=== PATIENT | male | born 1945 | race Caucasian/White ===

== ENCOUNTER 2018-10-08 02:14 | Outpatient (CLI) | payer BC, SELFPAY ==
[2018-10-08 09:00] LABS: ALT 36 U/L (12-78); AST 18 U/L (15-37); Albumin 3.7 g/dL (3.4-5.0); Alkaline Phosphatase 100 U/L (46-116); Anion Gap 9.1 mmol/L (3-11); BUN 20 mg/dL (7-18); Bilirubin, Total 0.8 mg/dL (0.2-1.0); CO2 28.9 mmol/L (21.0-32.0); CREATININE 0.86 mg/dL (0.70-1.30); Chloride 102 mmol/L (98-107); Cholesterol 194 mg/dL (50-200); Glucose 113 mg/dL (70-100); HDL Cholesterol 51 mg/dL (40-60); LDL CHOLESTEROL 126 mg/dL (<100); Potassium 4.7 mmol/L (3.5-5.1); Sodium 140 mmol/L (136-145); Total Protein 7.2 g/dL (6.4-8.2); Triglyceride 143 mg/dL (30-150)
[2018-10-09 10:12] LABS: PSA, Screening 17.5 ng/ml (0-6.5)
== END 2018-10-08 02:34 ==
PROVIDERS: PCP Family Medicine; Visit Provider Family Medicine
DX: R03.0 Elevated blood-pressure reading, without diagnosis of hypertension (principal); N40.0 Benign prostatic hyperplasia without lower urinary tract symptoms; Z12.5 Encounter for screening for malignant neoplasm of prostate
CPT/HCPCS: 36415; 80053; 80061; 83721; 84153

== ENCOUNTER 2019-12-06 02:12 | Outpatient (CLI) | payer BC, SELFPAY ==
[2019-12-06 10:37] LABS: Hemoglobin A1C 6.4 % (3.8-5.6)
[2019-12-06 11:04] LABS: Glucose 114 mg/dL (74-106)
[2019-12-07 09:19] LABS: PSA, Screening 24.2 ng/mL (0.0-6.5)
== END 2019-12-06 02:32 ==
PROVIDERS: PCP Family Medicine; Visit Provider Family Medicine
DX: E11.9 Type 2 diabetes mellitus without complications (principal); R73.9 Hyperglycemia, unspecified; R97.20 Elevated prostate specific antigen [PSA]; Z12.5 Encounter for screening for malignant neoplasm of prostate
CPT/HCPCS: 36415; 82947; 84153; 83036

== ENCOUNTER 2020-11-06 04:49 | Outpatient (CLI) | payer BC, SELFPAY ==
[2020-11-06 08:20] LABS: Hemoglobin A1C 6.7 % (<5.7)
[2020-11-06 08:33] LABS: Anion Gap 7.7 mmol/L (3-11); BUN 18 mg/dL (7-18); CO2 29.3 mmol/L (21.0-32.0); CREATININE 0.9 mg/dL (0.70-1.30); Calcium 8.6 mg/dL (8.5-10.1); Chloride 104 mmol/L (98-107); Glucose 122 mg/dL (74-106); Potassium 4.3 mmol/L (3.5-5.1); Sodium 141 mmol/L (136-145)
[2020-11-06 17:21] LABS: PSA, Diagnostic 23.7 ng/mL (0.0-6.5)
== END 2020-11-06 04:50 | disposition home or self-care (01) ==
LOC: LBO 04:49
PROVIDERS: PCP Family Medicine; Visit Provider Family Medicine
DX: I10 Essential (primary) hypertension (principal); E11.9 Type 2 diabetes mellitus without complications; N40.0 Benign prostatic hyperplasia without lower urinary tract symptoms
CPT/HCPCS: 36415; 80048; 83036; 84153

== ENCOUNTER 2020-12-28 13:27 | Outpatient (CLI) | payer BC, SELFPAY ==
--- NOTE | 2020-12-28 12:00 | DI.RAD_ITS ---
Exam(s) XR KNEE RT 4V AP,LAT,LUPIS,PAT EXAM: XR KNEE RT 4V AP,LAT,LUPIS,PAT CLINICAL HISTORY: pain. TECHNIQUE: 2D digital imaging was performed. COMPARISON: No exams were available for comparison FINDINGS: There is no evidence of fracture but there is a joint effusion filling the suprapatellar bursa. This signifies internal derangement. There is advanced narrowing of the medial compartment seen on the weight-bearing view. No narrowing of the lateral compartment. There are moderate degenerative changes are noted in the medial aspect o f the patellofemoral compartment IMPRESSION: Degenerative changes as described above. Joint effusion also noted. DATA REPOSITORY: RADIATION DOSE DELIVERED:
== END 2020-12-28 13:28 | disposition home or self-care (01) ==
LOC: DIORS 13:28
PROVIDERS: PCP Family Medicine; Referring Provider Family Medicine; Visit Provider Physician Assistant Surgical
DX: M17.11 Unilateral primary osteoarthritis, right knee (principal)
CPT/HCPCS: 73564

== ENCOUNTER 2021-07-23 02:47 | Outpatient (CLI) | payer BC, SELFPAY ==
[2021-07-23 07:47] LABS: COMMENT (LAB VIEW ONLY) 121.43 mg/dL; Microalb ug/mg Crea 77.1 ug/mg Cr
[2021-07-23 07:48] LABS: Hemoglobin A1C 6.5 % (<5.7)
[2021-07-23 08:29] LABS: Anion Gap 7.1 mmol/L (3-11); BUN 16 mg/dL (7-18); CO2 29.9 mmol/L (21.0-32.0); CREATININE 0.8 mg/dL (0.70-1.30); Calcium 9.2 mg/dL (8.5-10.1); Chloride 104 mmol/L (98-107); Glucose 124 mg/dL (74-106); Potassium 4.5 mmol/L (3.5-5.1); Sodium 141 mmol/L (136-145)
[2021-07-25 14:05] LABS: Lab Add On Test DONE
== END 2021-07-23 02:48 | disposition home or self-care (01) ==
LOC: LBO 02:47
PROVIDERS: Family Medicine; PCP Nurse Practitioner Family; Visit Provider Nurse Practitioner Family
DX: E11.9 Type 2 diabetes mellitus without complications (principal); R97.20 Elevated prostate specific antigen [PSA]
CPT/HCPCS: 36415; 80048; 80061; 82043; 82570; 83036; 84153

== ENCOUNTER 2022-09-26 02:01 | Outpatient (CLI) | payer BC, SELFPAY ==
[2022-09-26 07:42] LABS: Anion Gap 5.4 mmol/L (3-11); BUN 17 mg/dL (7-18); CO2 30.6 mmol/L (21.0-32.0); CREATININE 0.9 mg/dL (0.70-1.30); Calcium 9.6 mg/dL (8.5-10.1); Chloride 102 mmol/L (98-107); Estimated GFR 87.96 (mL/min/1.73m2); Glucose 137 mg/dL (74-106); Potassium 4.1 mmol/L (3.5-5.1); Sodium 138 mmol/L (136-145)
[2022-09-26 07:49] LABS: Hemoglobin A1C 6.7 % (<5.7)
[2022-09-26 08:00] LABS: Calculated LDL 97 mg/dL (<100); Cholesterol 182 mg/dL (<200); HDL Cholesterol 70 mg/dL (40-60); Triglyceride 77 mg/dL (<150)
[2022-09-26 20:08] LABS: PSA, Screening 42.4 ng/mL (<=6.5)
== END 2022-09-26 02:02 | disposition home or self-care (01) ==
PROVIDERS: PCP Nurse Practitioner Family; Visit Provider Nurse Practitioner Family
DX: E78.5 Hyperlipidemia, unspecified (principal); R73.03 Prediabetes; N40.1 Benign prostatic hyperplasia with lower urinary tract symptoms; R97.20 Elevated prostate specific antigen [PSA]; Z12.5 Encounter for screening for malignant neoplasm of prostate
CPT/HCPCS: 36415; 80048; 80061; 84153; 83036

== ENCOUNTER 2024-01-23 16:21 | Emergency (ER) | payer BC, SELFPAY ==
[2024-01-23] VITALS (22 sets, daily range): BP systolic 110–177; BP diastolic 61–98; PULSE 75–101; RESP 13–21; TEMP 35.9; O2SAT 92–97
--- NOTE | 2024-01-23 17:00 | RT.EKG_ITS ---
APPROVED REPORT Exam: Resting ECG Reason for Exam: Tachy, GI bleed Patient Location: E HR:83 bpm ECG Measurements Heart Rate 83 AXIS IA 156 P 72 QRSd 85 QRS 17 QT 359 T 55 QTc 423 Conclusion Sinus rhythm Rate 83 No STEMI
[2024-01-23 17:06] LABS: Abs Immature Grans 0.06 10^3/uL (0.0-0.06); Absolute Basophil Count 0.05 10^3/uL (0.0-0.2); Absolute Eosinophil Count 0.04 10^3/uL (0.0-0.7); Absolute Monocyte Count 0.66 10^3/uL (0.1-0.8); Absolute Neutrophil Count 11.18 10^3/uL (1.2-6.7); Basophils % 0.4 %; Eosinophils % 0.3 %; HCT 39.3 % (40.0-50.0); Immature Grans % 0.4 %; Lactate 3.3 mmol/L (0.6-1.4); Lymphocytes % 11.6 %; MCHC 33.1 % (32.0-36.0); MCV 88 fL (80-95); MPV 11.8 fL (8.0-11.0); Monocytes % 4.9 %; Neutrophils % 82.4 %; Platelet Count 255 10^3/uL (130-400); RBC 4.48 10^6/uL (4.36-5.78); RDW 13.4 % (11.8-14.1); RDW-SD 43.1 fL; WBC 13.57 10^3/uL (4.4-10.8)
[2024-01-23] MEDS: Pantoprazole 40 MG VIAL 80 MG IVP (17:06)
[2024-01-23 17:07] LABS: Absolute Lymphocyte Count 1.57 10^3/uL (1.2-3.4)
[2024-01-23 17:15] LABS: INR 1.1 (0.9-1.1); Prothrombin Time 11.1 sec (9.1-11.1)
--- NOTE | 2024-01-23 17:20 | W.ED.GENAD ---
Discharge Plan Disposition Patient Disposition: Against Medical Advice Condition: Stable Discharge Details Clinical Impression: Acute lower GI bleeding, Hyperlipidemia, Hypertension, Type 2 diabetes mellitus Primary Care Provider: Stella Adames ED Provider: Katelyn Gage Home Meds and New Rx's Prescriptions: New omeprazole 20 mg capsule,delayed release(DR/EC) 20 mg PO DAILY Qty: 30 0RF No Action Men 50 Plus Multivitamin 300-600-300 mcg tablet 1 tab PO DAILY Discharge Instructions Instructions: Bloody Stools, Adult ED Additional Instructions: You were seen in the emergency department today for evaluation of blood in your stool and were found to have a lower GI bleed. You received IV fluids because you appear dehydrated and have an elevation in your BUN and your lactate, and the lactate improved slightly on recheck. I did reach out to our general surgery team as well as your radiologist team, and all of your providers agree that you would benefit from admission for observation, hemoglobin checks, and potential intervention of your active GI bleeding. At this time, you have decided to leave the hospital AGAINST MEDICAL ADVICE, and understands the risks associated with doing so, which include ongoing gastrointestinal bleeding, decreased blood pressure, decreased hemoglobin, dizziness, heart attack, and even . You understand that you can return at any time to the emergency department for reevaluation, and should do so if you develop any concerning symptoms. Even if you feel entirely better, you should follow-up with your primary care provider in the next day or 2 to be reevaluated and ensure that your hemoglobin level is at a safe place. Thank you for allowing us to be part of your care. HPI General Date/Time Provider Initiated Documentation: 01/23/24 16:34. Limitations to Documentation: no limitations. Information obtained by: patient and family. HPI Narrative: MDM: In brief, this is a 78-year-old male patient with a past medical history significant for diabetes, hypertension, hyperlipidemia presenting for evaluation of blood in his stool. My differential includes but is not limited to GI bleed, most likely upper due to peptic ulcer disease, duodenal ulcer disease, GERD, certainly considered cancer/masses. May consider lower GI bleed including AVM, diverticular bleed, hemorrhoidal bleed, and considered coagulopathy. The patient is reassuringly without abdominal pain, but I did consider mesenteric ischemia. We will obtain laboratory studies to include CBC, CMP, troponin, lactate, and type and screen with PT/INR. Obtain a CTA to evaluate for acute bleeding or mesenteric ischemia or other abnormalities to account for the patient's symptoms. I did provide the patient with a dose of Protonix, 80 mg, and obtained an EKG. ED Course: I reviewed the patient's laboratory studies, which shows a mild leukocytosis to 13.5, mild anemia of 13.0 and no thrombocytopenia. Chemistry panel is without electrolyte derangements, patient does have an elevation in his BUN to 48, with a creatinine of 1. The patient has no evidence of liver dysfunction, troponin was negative, and his INR was 1.1. CT scan was obtained, and discussed with the radiologist. The patient has evidence of active GI bleeding in his sigmoid colon concerning for lower GI bleed, and this finding was shared with the patient. The patient was noted to have an elevation in his lactate to 3.3, decreased to 2.4 after a liter of IV fluids. I recommended to the patient that we admit him to the hospital for hemoglobin trending, monitoring of GI bleeding, and potential GI intervention. I discussed the patient's case with Dr. Fuentes of general surgery and he agrees with this care management plan. The patient reports that he does not want to be admitted, and ultimately elected to leave the hospital AGAINST MEDICAL ADVICE. He has capacity to make medical decisions, is awake alert and oriented, is understanding of the risks associated with discharge as well as the benefits of being admitted. He is understanding that he can return to the emergency department at any time for reevaluation and reassessment, and was counseled to follow-up with his primary care provider in the next day or 2 for reevaluation to ensure safe hemoglobin levels and vital signs. At this time, the patient has had a full medical evaluation and is leaving the hospital AGAINST MEDICAL ADVICE. They are hemodynamically stable, ambulatory, and tolerating PO. They are understanding of the follow-up plan and return precautions. They left our facility without incident. Katelyn Gage MD HPI: This is a 78-year-old male patient with a past medical history of diabetes, hypertension, hyperlipidemia presenting for evaluation of melena. The patient reports that 3 hours ago he had a stool that looked dark black, with blood around the edges. He has never had blood in his stool before and this caused him a significant amount of distress, prompting his rapid presentation to care. The patient reports that he has never had an endoscopy or colonoscopy, has no history of GERD or acid reflux, and takes no GI medications. He reports that he is not experiencing any abdominal pain, had been eating and drinking normally for himself, and has not had any chest pain or shortness of breath. No recent fevers or illnesses. No changes in urinary habits or dysuria. Exam: Gen: Awake and alert, in no apparent distress HEENT: Non-icteric sclera Neck: Supple Lungs: No apparent respiratory distress, normal respiratory effort. CV: Appears well perfused, strong and symmetrical distal pulses, mild tachycardia appreciated on triage vital signs as resolved Abdomen: Non-distended, soft, nontender to palpation with no rigidity, rebound, or guarding. : Rectal examination supervised by KIRT Myers, revealing a normal external anus with guaiac positive melena on the glove after YAZMIN. No external hemorrhoids or palpable internal hemorrhoids. MSK: Moves 4 extremities without apparent limitation in ROM Skin: Visualized skin without rashes, cyanosis. Neuro: Normal Gait, no obvious focal deficits or facial asymmetry. Speaks in full, clear sentences. Psych: Appropriate for situation. Related Data Home Medications ?Medication ?Instructions ?Recorded ?Confirmed vogzboqf-al-yrrij 300 mcg-K 60 1 tab PO DAILY 12/15/19 01/23/24 mcg-lycop 600 mcg-lutein 300 mcg tablet (Men 50 Plus Multivitamin) omeprazole 20 mg capsule,delayed 20 mg PO DAILY #30 caps 01/23/24 release Previous Rx's ?Medication ?Instructions ?Recorded omeprazole 20 mg capsule,delayed 20 mg PO DAILY #30 caps 01/23/24 release Allergies Allergy/AdvReac Type Severity Reaction Status Date / Time No Known Allergies Allergy Verified 01/23/24 16:59 General Stated Complaint: GI Bleed BRENDA: 2 Course Vital Signs Vital signs: Vital Signs Temperature 35.9 C L 01/23/24 16:23 Pulse 101 H 01/23/24 16:23 Respiratory Rate 18 01/23/24 16:23 Blood Pressure 166/98 H 01/23/24 16:23 Pulse Oximetry 96 01/23/24 16:23 Temperature 35.9 C L 01/23/24 16:23 Temperature Source Temporal Artery Scan 01/23/24 16:23 Pulse 101 H 01/23/24 16:23 Respiratory Rate 18 01/23/24 16:23 Respiratory Effort Normal, Non-Labored, Short of Breath 01/23/24 16:59 Blood Pressure 166/98 H 01/23/24 16:23 Pulse Oximetry 96 01/23/24 16:23 Oxygen Delivery Method Room Air 01/23/24 16:23 Oxygen Flow Rate 0 01/23/24 16:23 Pain Level 0 01/23/24 17:06 Lab/Test Results Lab/Test Results: Laboratory Tests Range/Units 01/23/24 16:56 WBC (4.4-10.8) 10^3/uL 13.57 H RBC (4.36-5.78) 10^6/uL 4.48 Hgb (13.5-17.5) g/dL 13.0 L Hct (40.0-50.0) % 39.3 L MCV (80-95) fL 88 MCH (27.0-33.0) pg 29.0 MCHC (32.0-36.0) % 33.1 RDW (11.8-14.1) % 13.4 Plt Count (130-400) 10^3/uL 255 MPV (8.0-11.0) fL 11.8 H Immature Gran % % 0.4 Neutrophils % % 82.4 Lymphocytes % % 11.6 Monocytes % % 4.9 Eosinophils % % 0.3 Basophils % % 0.4 Nucleated RBC % (0.0-0.3) % 0.0 Absolute Neutrophils (1.2-6.7) 10^3/uL 11.18 H Absolute Lymphocytes (1.2-3.4) 10^3/uL 1.57 Absolute Monocytes (0.1-0.8) 10^3/uL 0.66 Absolute Eosinophils (0.0-0.7) 10^3/uL 0.04 Absolute Basophils (0.0-0.2) 10^3/uL 0.05 PT (9.1-11.1) sec 11.1 INR (0.9-1.1) 1.1 VBG Lactate (0.6-1.4) mmol/L 3.3 H* Medical Decision Making Quality:SDOH Health Related Social Needs: No Data to Display PFSH All Active Problems (Updated 01/23/24 @ 19:55 by Katelyn Gage MD) Acute lower GI bleeding (Acute) Hypertension (Chronic) Type 2 diabetes mellitus (Chronic) Elevated prostate specific antigen (PSA) (Chronic) Biopsy 2011 and 2022 negative for malignancy BPH loc w urin obs/LUTS (Chronic) Hyperlipidemia (Chronic) Osteoarthritis of right knee (Chronic) Steroid injection: 03/05/2021 Epidermoid cyst of skin of back (Chronic) Surgical History S/P tonsillectomy Family History Mother , age 85 No problems noted. Father , age 45 No problems noted. Sister , age 50 Cancer Sister , age 55 Heart disease Sister No problems noted. Brother , age 52 Heart disease Brother No problems noted. Son No problems noted. Son No problems noted. Maternal Grandfather , age 77 No problems noted. Paternal Grandfather , age 65 No problems noted. Maternal Grandmother , age 57 Heart disease Paternal Grandmother , age 80 No problems noted. Social History Smoking/Tobacco Use Status: Former Tobacco Use tobacco type: cigarettes Quit Date: 06/02/97 Tobacco: How many years used: 20 Second Hand Exposure: Yes Smoking risk assessment performed?: Yes Alcohol Intake: current Alcohol Intake frequency: a few times a month Alcohol type: beer and hard liquor Drug use: Never Substance use type: does not use Caregiver/Support person: No Household members: significant other Housing: house Communication Needs: None Do you need help understanding health information?: Never Pets and animals: Yes Pets and animals: cat(s) Sexually active: Yes Do you think of yourself as: straight/heterosexual Current gender identity: male What is your relationship status?: How often do you talk on the phone with friends or family?: once per week How often do you get together with friends or relatives?: once per week How often do you attend congregational or holiness services?: decline to answer Do you belong to any clubs or organized social groups?: no Panel score (0-1 are the most socially isolated patients): 1 What type of physical activity do you participate in: walking Duration: 45-60 minutes/day Frequency: daily Emma/Taoism: None Special emma needs: No Seatbelt use: always Helmet use: No Drive intox or ride w/intox driver merchandiser: No Do you feel safe at home: Yes Do you feel safe in your relationship?: Yes
[2024-01-23] MEDS: Lactated Ringers 1,000 ML 1000 ML IV (17:24)
[2024-01-23 17:32] LABS: ALT 22 U/L (16-63); AST 15 U/L (15-37); Albumin 3.1 g/dL (3.4-5.0); Alkaline Phosphatase 86 U/L (46-116); Anion Gap 12.5 mmol/L (3-11); BUN 48 mg/dL (7-18); Bilirubin, Total 0.65 mg/dL (0.2-1.0); CO2 21.5 mmol/L (21.0-32.0); Calcium 8.9 mg/dL (8.5-10.1); Chloride 105 mmol/L (98-107); Estimated GFR 76.56 (mL/min/1.73m2); Glucose 214 mg/dL (74-106); Magnesium 1.9 mg/dL (1.8-2.4); Potassium 4.2 mmol/L (3.5-5.1); Sodium 139 mmol/L (136-145); Total Protein 6.6 g/dL (6.4-8.2); Troponin I < 50 ng/L (< or =60)
[2024-01-23] MEDS: Omnipaque 350 MG/ML 100 ML BTL IJ (18:32)
[2024-01-23] MEDS: Normal Saline - Diluent 50 ML VIAL IJ (18:33)
--- NOTE | 2024-01-23 18:34 | DI.CT_ITS ---
Exam(s) CT ABDOMEN PELVIS CTA EXAM: CT ABDOMEN PELVIS CTA CLINICAL HISTORY: GI bleed. TECHNIQUE: Imaging Protocol: Axial CT angiography was performed with multi-slice acquisition and m ulti-planar and/or 3D reconstructions. CONTRAST MATERIAL: Intravenous: Omnipaque 350 Contrast volume:100mL Oral: No COMPARISON: No exams were available for comparison FINDINGS: ABDOMEN AND PELVIS: Abdomen: Celiac axis/mesenteric arteries: No evidence of occlusion or significant stenosis. Renal Arteries: No evidence of occlusion or significant stenosis. Mild atherosclerotic calcification is seen in the proximal renal arteries bilaterally but no significant stenosis is present. Aorta: No evidence of occlusion or significant stenosis. No aneurysm or dissection. Mild atheroscler otic calcification is seen but no significant stenosis. Pelvis: Iliac Arteries: No evidence of occlusion or significant stenosis. Mild atherosclerotic calcification is seen but no significant stenosis. Common Femoral Arteries: No evidence of occlusion or significant stenosis. ABDOMEN: Lung bases: There is scarring in the right middle lobe. Liver: Normal density. There is a simple hepatic cyst. No follow-up is recommended. No suspicious h epatic masses. Portal, Superior Mesenteric, and Splenic Veins: Unremarkable. Gallbladder and Biliary Tract: No radiodense calculus or dilation. Pancreas: Normal density, no abnormal calcifications or inflammatory process. Spleen: Normal. Adrenals: No masses seen. Kidneys: Normal size, contour and axis. Nonobstructing right renal calculus. No obstructive uropathy . Simple right renal cysts. No follow-up is recommended. Bowel: There is diverticulosis of the colon without evidence of acute diverticulitis. There is no ev idence of bowel obstruction or bowel wall thickening. Appendix is unremarkable. On the arterial imag es there is high density material seen in the mid sigmoid colon (series 16, image [id number]) suggestive a ctive extravasation. Peritoneal Cavity: No ascites, collection or mesenteric inflammatory response. No free air. Lymph Nodes: Within normal limits. Bones: Within normal limits for the patient's age. Soft Tissues: Unremarkable. PELVIS: Bladder: Symmetric distention, no gross wall thickening. Reproductive Organs: The prostate gland is markedly enlarged. Lymph Nodes: Within normal limits. Bones: Within normal limits. IMPRESSION: 1. High density material seen on the arterial images in the mid sigmoid colon suspicious for active l ower GI bleeding. 2. Colonic diverticulosis without evidence of acute diverticulitis. 3. Marked enlarged prostate gland. 4. Findings were discussed with the emergency department at 6:55 p.m. on 01/23/2024. RADIATION DOSE DELIVERED: Total DLP DATA REPOSITORY: All CT scans at this facility are submitted to the National Radiology Data Registry (NRDR) Dose Index Registry (DIR) with the [employer] (ACR). RADIATION OPTIMIZATION: All CT scans at this facility use at least one of these dose optimization te chniques: automated exposure control; mA and/or kV adjustment per patient size (includes targeted exa ms where dose is matched to clinical indication); or iterative reconstruction.
[2024-01-23 19:26] LABS: Lactate 2.4 mmol/L (0.6-1.4)
[2024-01-23 19:40] LABS: Troponin I < 50 ng/L (< or =60)
--- NOTE | 2024-01-23 19:43 | SCONE_ITS ---
Date of service: 01/23/24 Time of Service: 19:44 Assessment and Plan Assessment and plan (1) Acute lower GI bleeding: Status: Acute Assessment and plan: 78 yo man with gi bleeding. Source likely lower GI per CTA . . . presumably diverticular bleed. Still possible to be upper gi however. Patient is reportedly hemodynamically stable. It is unclear what baseline hemoglobin is, though it is certainly not low enough to warrant transfusion at this point. Recommendations are: # Admission to the hospitalist service: medical management to include maximum- dose PPI therapy, sucralfate, somatostatin, etc. # Serial hemoglobin checks every 6-8 hours, until hemoglobin has stabilized # Crossmatch, check coagulation factors/antiplatelet therapies and correct them as needed - hold/reverse any anticoagulation(None suspected in this case). Platelet count is normal and reportedly does not have anti-platelet therapy on board. # Transfuse as needed for hemoglobin target greater than 7 unless - symptomatic or hemodynamically unstable. Currently Hgb is 13. Likely to drift down over next 24 hours. # Minimal IV fluids - permissive hypotension - treat hypovolemia with blood products (NOT crystalloid). At this time the patient is not unstable and any volume resuscitation should be oral rehydration only. Patient should have TWO large, 18+ ga PIVs in separate extremities. # Urgent/emergent endoscopy and colonoscopy indicated for bleeding that does not respond to transfusion(>4u) Otherwise semi-elective, scheduled procedure(s) are appropriate from a diagnostic standpoint. Uncertain how he will progress at this point. # Continued hemorrhage, not able to be controlled with colonoscopy, should be considered for transfer and IR angioembolization efforts. (Not currently an issue) # Emergency surgery is indicated as a last resort for extreme, life-saving measures only. (Not currently an issue) In this case, presumable source sigmoid colon. # Surgery will follow along until hemoglobin stabilizes and bleeding subsides. We can set him up for outpatient followup after he stabilizes and can be discharged. History of Present Illness Narrative: 78 yo man with melanotic stools per report. Reportedly stable and without pain or symptoms. No blood thinners or anti-platelets on board. No prior gi bleeds. Unclear if prior c-scope or not. CTA was done and had evidence of possible active bleeding source in the sigmoid colon - presumably diverticular bleeding. [facility] All Active Problems (Updated 01/23/24 @ 19:55 by Katelyn Gage MD) Acute lower GI bleeding (Acute) Hypertension (Chronic) Type 2 diabetes mellitus (Chronic) Elevated prostate specific antigen (PSA) (Chronic) Biopsy 2011 and 2022 negative for malignancy BPH loc w urin obs/LUTS (Chronic) Hyperlipidemia (Chronic) Osteoarthritis of right knee (Chronic) Steroid injection: 03/05/2021 Epidermoid cyst of skin of back (Chronic) Surgical History S/P tonsillectomy Family History Mother , age 85 No problems noted. Father , age 45 No problems noted. Sister , age 50 Cancer Sister , age 55 Heart disease Sister No problems noted. Brother , age 52 Heart disease Brother No problems noted. Son No problems noted. Son No problems noted. Maternal Grandfather , age 77 No problems noted. Paternal Grandfather , age 65 No problems noted. Maternal Grandmother , age 57 Heart disease Paternal Grandmother , age 80 No problems noted. Social History Smoking/Tobacco Use Status: Former Tobacco Use tobacco type: cigarettes Quit Date: 06/02/97 Tobacco: How many years used: 20 Second Hand Exposure: Yes Smoking risk assessment performed?: Yes Alcohol Intake: current Alcohol Intake frequency: a few times a month Alcohol type: beer and hard liquor Drug use: Never Substance use type: does not use Caregiver/Support person: No Household members: significant other Housing: house Communication Needs: None Do you need help understanding health information?: Never Pets and animals: Yes Pets and animals: cat(s) Sexually active: Yes Do you think of yourself as: straight/heterosexual Current gender identity: male What is your relationship status?: How often do you talk on the phone with friends or family?: once per week How often do you get together with friends or relatives?: once per week How often do you attend sabianist or scientologist services?: decline to answer Do you belong to any clubs or organized social groups?: no Panel score (0-1 are the most socially isolated patients): 1 What type of physical activity do you participate in: walking Duration: 45-60 minutes/day Frequency: daily Emma/Anabaptism: None Special emma needs: No Seatbelt use: always Helmet use: No Drive intox or ride w/intox port cdl a driver: No Do you feel safe at home: Yes Do you feel safe in your relationship?: Yes Exam Narrative Exam Narrative: per ED physician, HD stable and neurovascular intact. Results Last Vital Signs Temp 96.6 F L 01/23/24 16:23 Pulse 76 01/23/24 19:01 Resp 20 01/23/24 19:01 BP 139/75 01/23/24 19:01 Pulse Ox 96 01/23/24 19:01 Labs 01/23/24 16:56 01/23/24 16:56 Labs: Laboratory Results - last 24 hr 01/23/24 01/23/24 16:56 19:05 WBC 13.57 H RBC 4.48 Hgb 13.0 L Hct 39.3 L MCV 88 MCH 29.0 MCHC 33.1 RDW 13.4 Plt Count 255 MPV 11.8 H Immature Gran % 0.4 Neutrophils % 82.4 Lymphocytes % 11.6 Monocytes % 4.9 Eosinophils % 0.3 Basophils % 0.4 Nucleated RBC % 0.0 Absolute Neutrophils 11.18 H Absolute Lymphocytes 1.57 Absolute Monocytes 0.66 Absolute Eosinophils 0.04 Absolute Basophils 0.05 PT 11.1 INR 1.1 VBG Lactate 3.3 H* 2.4 H* Sodium 139 Potassium 4.2 Chloride 105 Carbon Dioxide 21.5 Anion Gap 12.5 H BUN 48 H Creatinine 1.0 Est GFR (CKD-EPI 2020) 76.56 Glucose 214 H Calcium 8.9 Magnesium 1.9 Total Bilirubin 0.65 AST 15 ALT 22 Alkaline Phosphatase 86 Troponin I < 50 < 50 Total Protein 6.6 Albumin 3.1 L ABO/Rh O Positive Antibody Screen NEGATIVE
== END 2024-01-23 20:00 | disposition left against medical advice (07) ==
PROVIDERS: Emergency Provider Emergency Medicine; PCP Nurse Practitioner Family
DX: K92.2 Gastrointestinal hemorrhage, unspecified (principal); I10 Essential (primary) hypertension; E78.5 Hyperlipidemia, unspecified; E11.9 Type 2 diabetes mellitus without complications; Z87.891 Personal history of nicotine dependence; Z53.29 Procedure and treatment not carried out because of patient's decision for other reasons
CPT/HCPCS: 00123; 36415; 80053; 86850; 86900; 86901; 93005; 96361; 96374; 99285; 74174; 83605; 83735; 84484; 85025; 85610; 93010; J2470; J3490

== ENCOUNTER 2024-01-28 07:58 | Outpatient (CLI) | payer BC, SELFPAY ==
[2024-01-28 12:10] LABS: Abs Immature Grans 0.07 10^3/uL (0.0-0.06); Absolute Basophil Count 0.05 10^3/uL (0.0-0.2); Absolute Eosinophil Count 0.02 10^3/uL (0.0-0.7); Absolute Lymphocyte Count 1.55 10^3/uL (1.2-3.4); Absolute Monocyte Count 0.75 10^3/uL (0.1-0.8); Absolute Neutrophil Count 7.53 10^3/uL (1.2-6.7); Basophils % 0.5 %; Eosinophils % 0.2 %; HCT 33.3 % (40.0-50.0); HGB 10.8 g/dL (13.5-17.5); Immature Grans % 0.7 %; Lymphocytes % 15.5 %; MCH 29.1 pg (27.0-33.0); MCHC 32.4 % (32.0-36.0); MCV 90 fL (80-95); MPV 12.2 fL (8.0-11.0); Monocytes % 7.5 %; Neutrophils % 75.6 %; Platelet Count 280 10^3/uL (130-400); RBC 3.71 10^6/uL (4.36-5.78); RDW 13.9 % (11.8-14.1); RDW-SD 45.5 fL; WBC 9.97 10^3/uL (4.4-10.8)
[2024-01-28 12:20] LABS: Hemoglobin A1C 6.5 % (<5.7)
[2024-01-28 12:44] LABS: ALT 26 U/L (16-63); AST 21 U/L (15-37); Albumin 3.5 g/dL (3.4-5.0); Alkaline Phosphatase 82 U/L (46-116); Anion Gap 9.8 mmol/L (3-11); BUN 10 mg/dL (7-18); CO2 27.2 mmol/L (21.0-32.0); CREATININE 0.8 mg/dL (0.70-1.30); Calcium 9.2 mg/dL (8.5-10.1); Chloride 106 mmol/L (98-107); Estimated GFR 90.02 (mL/min/1.73m2); Glucose 117 mg/dL (74-106); Sodium 143 mmol/L (136-145); Total Protein 7.5 g/dL (6.4-8.2)
[2024-01-28 13:43] LABS: Total Iron Binding Capacity 374 ug/dL (250-450)
[2024-01-28 14:07] LABS: Ferritin 92 ng/mL (26-388); Vitamin B12 539 pg/mL (193-986)
[2024-01-28 14:11] LABS: Folate > 20.0 ng/mL (8.6-20.0)
[2024-01-28 14:46] LABS: Lab Add On Test DONE
[2024-01-29 15:52] LABS: Hepatitis C Ab w Rflx HCV PCR Negative (Negative)
[2024-01-29 15:53] LABS: Transferrin 275 mg/dL (201-352)
== END 2024-01-28 07:59 | disposition home or self-care (01) ==
LOC: LOS 07:58
PROVIDERS: PCP Nurse Practitioner Family; Referring Provider Nurse Practitioner Family; Visit Provider Nurse Practitioner Family
DX: Z00.00 Encounter for general adult medical examination without abnormal findings (principal); K92.2 Gastrointestinal hemorrhage, unspecified; D64.9 Anemia, unspecified
CPT/HCPCS: 36415; 80053; 86803; 82607; 82728; 82746; 83036; 83550; 84466; 85025

== ENCOUNTER 2024-02-06 16:44 | Observation (INO) | payer BC, SELFPAY ==
--- NOTE | 2024-02-05 21:19 | COLE_ITS ---
Date of service: 02/06/24 Time of Service: 16:00 Colonoscopy Report Date of procedure: 02/06/24 Pre-op diagnosis general: rectal bleeding/anemia Post-op diagnosis procedure note: other (Multiple polyps and diverticula) Surgeon: Melania Orr Anesthesia Type: General:No Airway Estimated blood loss (mL): 5 Disposition: same day Prep: Miralax/Dulcolax Retraction Time: 43 Procedure Description: After informed consent was obtained, explaining risks of the procedure, inclu ding but not limits to: bleeding, infections, complications of anesthesia, perforations (which may require antibiotics and /or surgery and stay in the hospital), and abdominal pain/cramping. The patient was taken to the procedure room and placed in a left decubitous position. Monitors were applied and a time out was done. The patients name, date of , procedure, allergies to medications and metal in their body was reviewed. The patient was then sedated. Once sedated and comfortable a rectal exam was done. External exam was normal. Internal exam revealed a normal sphincter tone and no palpable masses. The prostate no palpable masses. The previously lubricated Olympus scope was then introduced (see RN notes for scope number) and retrofelexed. No internal hemorrhoids were identified. The scope was then advanced to the cecum without difficulty. The TI and appendiceal orifice were identified. The scope was then slowly retracted over 43 minutes back into the rectum. Polyps: A flat, .5cm and 0.75 cm polyp was found at 80cm x2 1 was removed with a cold snare and 1 was removed with a cold biting forcep.. POLYPS: This is a 1 cm pedunculated polyp 50cm x1 This was removed with a cold snare. There is x 1 0.5 cm polyp at 20 cm that is removed with a cold biting forcep. At 30 cm there are x 3 polyps that were removed. These ranged in size from 0.5 to 0.7 cm. These are removed with a cold biting forcep. There are 6 polyps at 20 cm. 2 are 0.75 cm and 3or 0.57 cm. These are all removed with a cold biting forcep. There is also a 3 cm polyp that it is on a long stalk. This is removed with a hot snare in 2 pieces. Clip is placed across the stalk. No bleeding is noted. All of the specimen was retrieved. This will be sent to pathology. There is no bleeding noted from the polypectomy site. The site was also tattooed as well, at 20 cm with Michelle ink. Diverticula: pt had a moderate amount of large mouthed diverticula in the sigmoid colon. There were no signs of active bleeding or infection. The mucosa is pink and healthy w/ a normal vascular pattern. The scope was removed, and the patient was woken up and taken back to Same day surgery in stable condition. The patient tolerated the procedure well and there were no immediate complications. Follow up: The patient should follow up in 6 months, unless they develop changes in bowel habits or other new gastrointestinal complaints. [place] Bowel Prep [place] Bowel Prep Right Colon: 3 Left Colon: 3 Transverse Colon: 3 Total Score: 9
--- NOTE | 2024-02-05 21:20 | W.PM.DSUDISC ---
Discharge Plan Disposition Patient Disposition: Home Discharge Details Attending Provider: Melania Orr Primary Care Provider: Stella Adames Home Meds and New Rx's Prescriptions: No Action cholecalciferol (vitamin D3) 25 mcg (1,000 unit) capsule 25 mcg PO DAILY polyethylene glycol 3350 17 gram/dose powder 238 g PO ONCE Qty: 238 0RF Rx Instructions: take per colonoscopy instructions bisacodyl [Dulcolax (bisacodyl)] 5 mg tablet,delayed release (DR/EC) 5 mg PO ONCE Qty: 4 0RF Rx Instructions: take per colonoscopy instructions Men 50 Plus Multivitamin 300-600-300 mcg tablet 1 tab PO DAILY omeprazole 20 mg capsule,delayed release(DR/EC) 20 mg PO HS Discharge Orders Discharge Orders: Discharge Order (Routine); Ordered 02/06/24 Ordered By: Melania Orr DS: Diagnosis Discharge Diagnosis (1) Hypertension: Status: Chronic (2) Hyperlipidemia: Status: Chronic (3) Type 2 diabetes mellitus: Status: Chronic (4) Acute lower GI bleeding: Status: Acute (5) Diverticulosis: Status: Acute
[2024-02-06] VITALS (15 sets, daily range): BP systolic 135–168; BP diastolic 64–83; PULSE 50–68; RESP 11–20; TEMP 36.3–36.9; O2SAT 98–100; BMI 23.5
[2024-02-06] MEDS: Lactated Ringers 1,000 ML 80 ML IV ×2 (13:47→23:27)
--- NOTE | 2024-02-06 14:01 | ANES.PREOP_ITS ---
General Info Date of Service Date Performed: 02/06/24 Height: 5 ft 11.5 in Weight: 77.6 kg Body Mass Index (BMI): 23.5 Surgical Procedure: Operation Date: 02/06/24 13:50 Proposed Procedure Side Surgeon p Colonoscopy/Gastroscopy Melania Orr, Meds Allergies and Home Medications Allergies Allergy/AdvReac Type Severity Reaction Status Date / Time No Known Allergies Allergy Verified 02/06/24 13:34 Home Medication ?Medication ?Instructions ?Recorded otfilwop-kt-altqv 300 mcg-K 60 1 tab PO DAILY 12/15/19 mcg-lycop 600 mcg-lutein 300 mcg tablet (Men 50 Plus Multivitamin) bisacodyl 5 mg tablet,delayed 5 mg PO ONCE colonscopy bowel prep 01/29/24 release (Dulcolax (bisacodyl)) #4 tabs cholecalciferol (vitamin D3) 25 25 mcg PO DAILY 01/29/24 mcg (1,000 unit) capsule polyethylene glycol 3350 17 238 g PO ONCE colonoscopy prep 01/29/24 gram/dose oral powder #238 grams omeprazole 20 mg capsule,delayed 20 mg PO HS 02/04/24 release Current Visit Medications: Current Medications Generic Name Dose Route Start Last Admin Trade Name Freq PRN Reason Stop Dose Admin Hyoscyamine Sulfate 0.125 mg 02/06/24 00:22 Hyoscyamine 0.125 Mg Sl/Oral/Chew SL 03/07/24 00:21 DIRECTED PRN Ringer's Solution 1,000 mls @ 80 mls/hr 02/06/24 06:00 02/06/24 13:47 IV 02/06/24 23:59 80 mls/hr INFUSION HOLLY Administration Iron Sucrose 200 mg/ Sodium 110 mls @ 440 mls/hr 02/06/24 06:00 Chloride IVPB 02/06/24 23:59 PREOP HOLLY IV Miscellaneous Supplies 1 each 02/06/24 06:00 Iv Access IV 02/06/24 23:59 DIRECTED HOLLY Ondansetron HCl 4 mg 02/06/24 00:22 Ondansetron 4 Mg/2 Ml Vial IVP 03/07/24 00:21 Q4H PRN PRN Nausea / Vomiting Sodium Chloride 0 ml 02/06/24 06:00 Normal Saline Flush 10 Ml Syr IV 02/06/24 23:59 PRN PRN Sodium Chloride 0 ml 02/06/24 06:00 Normal Saline 10 Ml Vial IJ 02/06/24 23:59 DIRECTED PRN Sterile Water 0 ml 02/06/24 06:00 Water,Injection,Sterile 10 Ml Vial IJ 02/06/24 23:59 DIRECTED PRN PFSH Active Problems Active Problems: Problem Status Onset Code Diverticulosis Acute K57.90 Acute lower GI bleeding Acute K92.2 Hypertension Chronic I10 Type 2 diabetes mellitus Chronic E11.9 Elevated prostate specific antigen (PSA) Chronic R97.20 BPH loc w urin obs/LUTS Chronic N40.1 Hyperlipidemia Chronic E78.5 Osteoarthritis of right knee Chronic M17.11 Epidermoid cyst of skin of back Chronic L72.0 Surgical History Surgical History S/P tonsillectomy Tobacco Smoking/Tobacco Use Status: Former Tobacco Use Passive smoking exposure: Yes Second hand exposure: Yes Alcohol Alcohol Intake: current Alcohol intake frequency: holidays/special occasions only Alcohol type: beer and hard liquor Substance Use Substance use: Never Substance use type: does not use Vital Signs and Lab Results Vital Signs Most Recent Vital Signs in EMR: Most Recent Vital Signs Temp Pulse Resp BP Pulse Ox 36.6 C 68 16 163/83 H 99 02/06/24 13:20 02/06/24 13:20 02/06/24 13:20 02/06/24 13:20 02/06/24 13:20 Point of Care Results Point of Care Results: Finger Stick Blood Glucose 109 02/06/24 13:49 Lab Results Blood Type / Crossmatch: Antibody Screen NEGATIVE 01/23/24 Complete Blood Count: White Blood Count 9.97 10^3/uL (4.4-10.8) 01/28/24 08:23 Red Blood Count 3.71 10^6/uL (4.36-5.78) L 01/28/24 08:23 Hemoglobin 10.8 g/dL (13.5-17.5) L 01/28/24 08:23 Hematocrit 33.3 % (40.0-50.0) L 01/28/24 08:23 Platelet Count 280 10^3/uL (130-400) 01/28/24 08:23 Venous Blood Lactate 2.4 mmol/L (0.6-1.4) H* 01/23/24 19:05 Complete Metabolic Panel: Sodium 143 mmol/L (136-145) 01/28/24 08:23 Potassium 4.0 mmol/L (3.5-5.1) 01/28/24 08:23 Chloride 106 mmol/L (98-107) 01/28/24 08:23 Carbon Dioxide 27.2 mmol/L (21.0-32.0) 01/28/24 08:23 BUN 10 mg/dL (7-18) 01/28/24 08:23 Creatinine 0.8 mg/dL (0.70-1.30) 01/28/24 08:23 Est GFR (CKD-EPI 2020) 90.02 (mL/min/1.73m2) 01/28/24 08:23 Magnesium 1.9 mg/dL (1.8-2.4) 01/23/24 16:56 Calcium 9.2 mg/dL (8.5-10.1) 01/28/24 08:23 Albumin 3.5 g/dL (3.4-5.0) 01/28/24 08:23 Glucose 117 mg/dL (74-106) H 01/28/24 08:23 Hemoglobin A1c 6.5 % (<5.7) H 01/28/24 08:23 Liver Function Panel: Alanine Aminotransferase (ALT/SGPT) 26 U/L (16-63) 01/28/24 08: 23 Aspartate Amino Transf (AST/SGOT) 21 U/L (15-37) 01/28/24 08:23 Coagulation Panel: INR International Normalized Ratio 1.1 (0.9-1.1) 01/23/24 16:5 6 Prothrombin Time 11.1 sec (9.1-11.1) 01/23/24 16:56 Cardiac Panel: Troponin I < 50 ng/L (< or =60) 01/23/24 Arterial Blood Gas: No Data to Display Venous Blood Gas: No Data to Display Pancreas Panel: No Data to Display Thyroid Panel: No Data to Display Infectious Disease: Hepatitis C Antibody Negative (Negative) 01/28/24 08:23 Blood Cultures: No Data to Display Toxicology Panel: No Data to Display Anesthesia Assessment and Plan Anesthesia History Personal History: No History of Anesthesia Complications Family History: No Family History of Anesthesia Complications Exercise Tolerance Exercise Tolerance: Metabolic Equivalents>4 Pertinent Negatives Pertinent Negatives: No Symptoms of GERD, No Major Cardiovascular Symptoms or Complaints, No Major Pulmonary Symptoms or Complaints and No History of CVA/TIA Cardiac & Pulmonary Exam Cardiac Exam: Normal S1/S2 Heart Sounds Pulmonary Exam: Clear Bilateral Breath Sounds Implantable Cardiac Device Does patient have a Pacemaker or an ICD?: No Airway Exam Known Difficult Airway: No Mallampati Class: 1 Mouth Opening: Normal (> 3cm) Thyromental Distance: Less than 3 cm Neck Range of Motion: Full ROM Neck Circumference: Normal Teeth Condition: Normal Dentition ASA Classification ASA Score: ASA 2 Emergency Case?: No NPO Status NPO Status: NPO Clears >2 hours, Solids >8 hours Anesthesia Plan Resuscitation Status: Full Code Anesthesia Technique: General Anesthesia Airway Planned: Natural Airway Monitors Used: Standard Monitors
--- NOTE | 2024-02-06 15:14 | BOWEL_PTH ---
PATIENT: Emery Evans LOC: [facility]#:[id number] AGE/SX: 78/M ROOM: 216 RE02/06/[address]: Melania Orr : 1945 BED: A DIS: 02/07/2024 SPEC #: [id number] RECD: 02/06/24 18:06 STATUS: RENETTA RE #: [id number] POLLY: 02/06/24 15:[address]: Melania Orr DEPT: Surgical Specimen RECD BY: Ale Garcia ENTERED: 02/06/24 18:10 SP TYPE: Bowel OTHR DR: Stella Adames, [employer] Tissues: 1 - BIOPSY BOWEL 2 - BIOPSY BOWEL 3 - STOMACH BIOPSY 4 - STOMACH BIOPSY 5 - ESOPHAGUS BIOPSY 6 - ESOPHAGUS BIOPSY 7 - BIOPSY BOWEL 8 - BIOPSY BOWEL 9 - BIOPSY BOWEL 10 - BIOPSY BOWEL 11 - BIOPSY BOWEL Procedures: GROSS AND MICRO LEVEL 4 Comments: [id number]
--- NOTE | 2024-02-06 16:27 | W.ANESPOSTOP ---
Postoperative Evaluation Date, Time and Location Date Performed: 02/06/24 Time Performed: 16:27 Patient Location: PACU Vital Signs Most Recent Imported Vital Signs: Most Recent Vital Signs Temp Pulse Resp BP Pulse Ox 36.5 C 51 L 12 154/71 H 98 02/06/24 16:24 02/06/24 16:20 02/06/24 16:21 02/06/24 16:20 02/06/24 16:21 Pain Score Most Recent Pain Score: Most Recent Pain Score Pain Level 0 02/06/24 16:24 Assessment Mental Status: Awake (Alert & Oriented to Patient Baseline) Airway and Respiratory Function: Patent airway with normal (patient baseline) respiratory exam Cardiovascular Function: Hemodynamically Stable Hydration Status: Adequately Hydrated Nausea & Vomiting: No Nausea or Vomiting Pain: Pt. Denies Any Pain Peripheral Nerve Block: Patient did not receive a nerve block
--- NOTE | 2024-02-06 17:00 | NUR.NOTE ---
Nursing Note: Pt arrived to unit from PACU at 1640. Pt oriented to room and call aragon. IVF running per orders. Call aragon within reach. Denies pain at this time. Will CTM.
[2024-02-06] MEDS: metroNIDAZOLE 500 MG/100 ML BAG 100 MG IVPB (17:28)
--- NOTE | 2024-02-06 18:55 | NUR.NOTE ---
Nursing Note: Pt ate 100% of dinner, denies N/V.
[2024-02-06] MEDS: Omeprazole 20 MG CAPCR PO (20:17)
[2024-02-06] MEDS: Normal Saline Flush 10 ML SYR IVP (20:41)
[2024-02-06] MEDS: CIPROFLOXACIN 200 MG/100 ML BAG 100 MG IVPB (20:41)
[2024-02-07] MEDS: metroNIDAZOLE 500 MG/100 ML BAG 100 MG IVPB ×2 (02:30→10:32)
[2024-02-07 06:40] LABS: Abs Immature Grans 0.03 10^3/uL (0.0-0.06); Absolute Basophil Count 0.04 10^3/uL (0.0-0.2); Absolute Eosinophil Count 0.04 10^3/uL (0.0-0.7); Absolute Monocyte Count 0.86 10^3/uL (0.1-0.8); Absolute Neutrophil Count 10.13 10^3/uL (1.2-6.7); Basophils % 0.3 %; Eosinophils % 0.3 %; HCT 32.4 % (40.0-50.0); HGB 10.6 g/dL (13.5-17.5); Immature Grans % 0.2 %; Lymphocytes % 11.1 %; MCH 28.2 pg (27.0-33.0); MCHC 32.7 % (32.0-36.0); MCV 86 fL (80-95); MPV 10.9 fL (8.0-11.0); Monocytes % 6.9 %; Neutrophils % 81.2 %; Platelet Count 287 10^3/uL (130-400); RBC 3.76 10^6/uL (4.36-5.78); RDW 13.3 % (11.8-14.1); RDW-SD 41.8 fL; WBC 12.48 10^3/uL (4.4-10.8)
[2024-02-07 06:51] LABS: ALT 26 U/L (16-63); AST 15 U/L (15-37); Alkaline Phosphatase 80 U/L (46-116); Anion Gap 7.9 mmol/L (3-11); BUN 10 mg/dL (7-18); Bilirubin, Total 0.58 mg/dL (0.2-1.0); CO2 28.1 mmol/L (21.0-32.0); CREATININE 0.8 mg/dL (0.70-1.30); Calcium 8.6 mg/dL (8.5-10.1); Chloride 104 mmol/L (98-107); Estimated GFR 90.02 (mL/min/1.73m2); Glucose 117 mg/dL (74-106); Potassium 4.1 mmol/L (3.5-5.1); Sodium 140 mmol/L (136-145); Total Protein 6.4 g/dL (6.4-8.2)
[2024-02-07 06:52] LABS: Absolute Lymphocyte Count 1.39 10^3/uL (1.2-3.4)
[2024-02-07 07:21] VITALS: BP 166/72; PULSE 62; RESP 15; TEMP 35.8; O2SAT 98
[2024-02-07] MEDS: CIPROFLOXACIN 200 MG/100 ML BAG 100 MG IVPB (08:39)
[2024-02-07] MEDS: Normal Saline Flush 10 ML SYR IVP (08:47)
[2024-02-07 09:37] VITALS: O2SAT 98
--- NOTE | 2024-02-07 12:01 | W.PM.DS.N ---
Date of service: 02/07/24 Time of Service: 12:02 DS: Diagnosis Discharge Diagnosis (1) Hypertension: Status: Chronic (2) Hyperlipidemia: Status: Chronic (3) Type 2 diabetes mellitus: Status: Chronic (4) Acute lower GI bleeding: Status: Acute (5) Diverticulosis: Status: Acute (6) Villoglandular colonic polyp: Status: Acute (7) Anemia due to GI blood loss: Status: Acute Discharge Plan Disposition Patient Disposition: Home Condition: Improving Discharge Details Reason For Visit: s/p removal cancerous polyp Admit Date/Time: 02/06/24 16:44 Admit Provider: Melania Orr Attending Provider: Melania Orr Primary Care Provider: [facility] Course Hospital Course: see addendum Home Meds and New Rx's Prescriptions: New metronidazole 500 mg tablet 500 mg PO TID 2 Days Qty: 6 0RF ciprofloxacin HCl [Cipro] 500 mg tablet 500 mg PO BID 2 Days Qty: 4 0RF ferrous sulfate [Herbie-In-Ara] 15 mg iron (75 mg)/mL drops 1 ml PO BID Qty: 50 6RF Continued cholecalciferol (vitamin D3) 25 mcg (1,000 unit) capsule 25 mcg PO DAILY Men 50 Plus Multivitamin 300-600-300 mcg tablet 1 tab PO DAILY omeprazole 20 mg capsule,delayed release(DR/EC) 20 mg PO HS Discontinued polyethylene glycol 3350 17 gram/dose powder 238 g PO ONCE Qty: 238 0RF Rx Instructions: take per colonoscopy instructions bisacodyl [Dulcolax (bisacodyl)] 5 mg tablet,delayed release (DR/EC) 5 mg PO ONCE Qty: 4 0RF Rx Instructions: take per colonoscopy instructions Discharge Instructions Additional Instructions: DSU Colonoscopy Post-Op Instructions Findings: Multiple large polyps One large polyp concerning for cancer Follow up: Dr. Orr in 2-3 weeks. You will need to call for appt [phone] on Friday during business hours (8-4). 1. No lifting over 20 pounds or strenuous activity for the first 72 hours after your procedure. After 72 hours there are no restrictions on your activity but you may feel fatigued for a few days. 2. After you arrive home you may have a light meal and return to your normal diet as you can tolerate it without feeling sick to your stomach. 3. You may have a bloated, gaseous feeling in your belly (abdomen) after a colonoscopy. Passing gas and belching will help. Walking or lying down on your left side with your knees flexed may relieve the discomfort. 4. Finish antibiotics as prescribed to prevent infection. 5. No ASA/NSAID's for 10 days. 6. Fe-Ara (iron drops) for the next 12 weeks. Than we will recheck blood count and iron levels. Call the office at [phone] (Office) or [phone] (Hospital) right away if you notice any of the following: a.Vomiting of blood or ?coffee ground stools?. b.Rectal bleeding 1Tbsp, blood clots or continuous bleeding. c.Severe belly (abdominal) pain. d.A hard distended belly (abdomen) and an inability to pass gas. 4. Please don?t expect to have a normal BM (bowel movement) for 2-3 days after your procedure. 5. If there are questions regarding the findings of your procedure, please contact your doctor 6. If you are unable to contact your doctor with a problem, contact the hospital at [phone]. 7. Continue all your regular medications unless directed otherwise. I understand the above instructions and have no questions. Signature of Patient or Adult Escort Name of Responsible Adult Escort Signature of Nurse Date/Time Stand Alone Forms: Anesthesia Discharge Karin Ross (DSU) Activity:: see above Equipment/Supplies:: No Equipment Needed Diet:: see above Discharge Orders Discharge Orders: Discharge Order (Routine); Ordered 02/06/24 Ordered By: Melania Orr DS: Summary Time Spent with Patient providing and/or coordinating discharge services: Less than 30 minutes Status at Discharge Functional status at discharge: independent ambulation Overall status at discharge: patient is progressing back to baseline Mental Status: mental status grossly normal Speech and Movement: speech and movement normal Mood: congruent mood Affect: normal affect Quality:SDOH Health Related Social Needs: No Data to Display Exam Psych Mental Status: mental status grossly normal Speech and Movement: speech and movement normal Mood: congruent mood Affect: normal affect DS: Data Vitals/I&O Vitals and I&O: Vital Signs Temperature 35.8 C L 02/07/24 07:21 Temperature Source Temporal Artery Scan 02/07/24 07:21 Pulse 62 02/07/24 07:21 Pulse Rhythm Regular 02/06/24 17:33 Pulse 51 L 02/06/24 16:30 Respiratory Rate 15 02/07/24 07:21 Respiratory Effort Normal 02/06/24 17:33 Respiratory Depth Normal 02/06/24 17:33 Respiratory Pattern Normal 02/06/24 17:33 Blood Pressure 166/72 H 02/07/24 07:21 Blood Pressure Mean 100 02/06/24 16:30 Pulse Oximetry 98 02/07/24 09:37 Respiratory End-tidal CO2 30 02/06/24 16:30 Oxygen Delivery Method Room Air 02/07/24 09:37 Oxygen Flow Rate 0 02/07/24 09:37 Pain Level 0 02/07/24 07:21 Intake & Output 02/06/24 02/07/24 02/07/24 23:59 11:59 23:59 Intake Total 1100 / 1100 540 / 540 Output Total 250 / 250 320 / 320 Balance 850 / 850 220 / 220 Weight 75.977 kg Intake: IV 1100 / 1100 540 / 540 Output: Urine 250 / 250 320 / 320 Other: Urine Color Pale Yellow Yellow Urine Appearance Clear Clear Urine Odor None Normal Emesis Description None Voiding Methods Toilet Urinal Data Completed and Pending Labs on day of discharge: Labs from last 24 hours 02/07/24 06:07 WBC 12.48 H RBC 3.76 L Hgb 10.6 L Hct 32.4 L MCV 86 MCH 28.2 MCHC 32.7 RDW 13.3 Plt Count 287 MPV 10.9 Immature Gran % 0.2 Neutrophils % 81.2 Lymphocytes % 11.1 Monocytes % 6.9 Eosinophils % 0.3 Basophils % 0.3 Nucleated RBC % 0.0 Absolute Neutrophils 10.13 H Absolute Lymphocytes 1.39 Absolute Monocytes 0.86 H Absolute Eosinophils 0.04 Absolute Basophils 0.04 Sodium 140 Potassium 4.1 Chloride 104 Carbon Dioxide 28.1 Anion Gap 7.9 BUN 10 Creatinine 0.8 Est GFR (CKD-EPI 2020) 90.02 Glucose 117 H Calcium 8.6 Total Bilirubin 0.58 AST 15 ALT 26 Alkaline Phosphatase 80 Total Protein 6.4 Albumin 3.0 L PFSH All Active Problems (Updated 02/07/24 @ 12:08 by Melania Orr DO) Anemia due to GI blood loss (Acute) Villoglandular colonic polyp (Acute) Diverticulosis (Acute) Acute lower GI bleeding (Acute) Hypertension (Chronic) Type 2 diabetes mellitus (Chronic) Elevated prostate specific antigen (PSA) (Chronic) Biopsy 2011 and 2022 negative for malignancy BPH loc w urin obs/LUTS (Chronic) Hyperlipidemia (Chronic) Osteoarthritis of right knee (Chronic) Steroid injection: 03/05/2021 Epidermoid cyst of skin of back (Chronic) Surgical History S/P tonsillectomy Family History Mother , age 85 No problems noted. Father , age 45 No problems noted. Sister , age 50 Cancer Sister , age 55 Heart disease Sister No problems noted. Brother , age 52 Heart disease Brother No problems noted. Son No problems noted. Son No problems noted. Maternal Grandfather , age 77 No problems noted. Paternal Grandfather , age 65 No problems noted. Maternal Grandmother , age 57 Heart disease Paternal Grandmother , age 80 No problems noted. Social History Smoking/Tobacco Use Status: Former Tobacco Use tobacco type: cigarettes Quit Date: 06/02/97 Tobacco: How many years used: 20 Second Hand Exposure: Yes Smoking risk assessment performed?: Yes Alcohol Intake: current Alcohol Intake frequency: holidays/special occasions only Alcohol type: beer and hard liquor Drug use: Never Substance use type: does not use Caregiver/Support person: No Household members: significant other Housing: house Communication Needs: None Do you need help understanding health information?: Never Pets and animals: Yes Pets and animals: cat(s) Sexually active: Yes Do you think of yourself as: straight/heterosexual Current gender identity: male What is your relationship status?: How often do you talk on the phone with friends or family?: once per week How often do you get together with friends or relatives?: once per week How often do you attend pentecostalism or nondenominational services?: decline to answer Do you belong to any clubs or organized social groups?: no Panel score (0-1 are the most socially isolated patients): 1 What type of physical activity do you participate in: walking Duration: 45-60 minutes/day Frequency: daily Emma/Moravian: None Special emma needs: No Seatbelt use: always Helmet use: No Drive intox or ride w/intox trolley coach driver: No Do you feel safe at home: Yes Do you feel safe in your relationship?: Yes Time Spent with Patient Time Spent with Patient: <45 minutes Time was spent: preparing to see the patient(eg.review tests), obtaining and/or reviewing separately otained hiistory, ordering medications,tests, procedures, referring, communicating with other health care management coordinator, indepentently interpreting results, counseling the patient, care coordination and other
--- NOTE | 2024-02-07 12:06 | PGE_ITS ---
Date of Service Date of service: 02/06/24 Time of Service: 19:00 Assessment and Plan Assessment and plan (1) Hypertension: Status: Chronic (2) Hyperlipidemia: Status: Chronic (3) Type 2 diabetes mellitus: Status: Chronic (4) Acute lower GI bleeding: Status: Acute (5) Diverticulosis: Status: Acute (6) Villoglandular colonic polyp: Status: Acute Assessment and plan: I discussed with the patient and his because of the large size of the polyp and the number of polyps that were removed, I would like him to spend the night for monitoring for bleeding and to start him on IV antibiotics to prevent post polypectomy syndrome. Labs in a.m. He can get the Venofer upstairs. And then we will plan discharge at noon on Friday I will see him back in 2 weeks for follow-up and to review pathology (7) Elevated prostate specific antigen (PSA): Status: Chronic (8) Anemia due to GI blood loss: Status: Acute Subjective Subjective Interval history since last seen: The patient is doing well post-op. Their pain is well controlled. They are having no nausea or vomiting. The pt is not having any chest pain or SOB, productive cough; no calf pain or swelling. The pt is making good urine. The pt pain is adequately controlled. The case was discussed with nursing and patient?s progress reviewed. All of the pt's home medications were addressed and adjusted accordingly for their oral intact status. HEENT: . Mild sore throat Cardio- NSR no chest pain, BP stable. Pulm: no sob or productive cough. no hemoptysis no bleeding or drainage I discussed with the patient and/or there family about the findings in surgery and the pt's progress. We reviewed expectations for progress in the hospital; what the pt could expect for recovery time and length of stay. We discussed the importance of walking and pulmonary toilet to avoid blood clots and pneumonia. Continue current plans for pulmonary toilet, GI and DVT prophylaxis. We shall continue the current plan for pain management as it is at an appropriate level, and working well for the pt. Appropriate measures will be taken for constipation prevention, and this was also reviewed with the pt. The wound care plan was reviewed with nursing as well. see orders Exam Const Other: Lungs are clear to auscultation Heart is normal sinus Abdomen is soft and nontender. He has not had any bleeding. He is passing gas. Objective Last Vital Signs Temp 35.8 C L 02/07/24 07:21 Pulse 62 02/07/24 07:21 Resp 15 02/07/24 07:21 BP 166/72 H 02/07/24 07:21 Pulse Ox 98 02/07/24 09:37 Laboratory Results - last 24 hr 02/07/24 06:07 WBC 12.48 H RBC 3.76 L Hgb 10.6 L Hct 32.4 L MCV 86 MCH 28.2 MCHC 32.7 RDW 13.3 Plt Count 287 MPV 10.9 Immature Gran % 0.2 Neutrophils % 81.2 Lymphocytes % 11.1 Monocytes % 6.9 Eosinophils % 0.3 Basophils % 0.3 Nucleated RBC % 0.0 Absolute Neutrophils 10.13 H Absolute Lymphocytes 1.39 Absolute Monocytes 0.86 H Absolute Eosinophils 0.04 Absolute Basophils 0.04 Sodium 140 Potassium 4.1 Chloride 104 Carbon Dioxide 28.1 Anion Gap 7.9 BUN 10 Creatinine 0.8 Est GFR (CKD-EPI 2020) 90.02 Glucose 117 H Calcium 8.6 Total Bilirubin 0.58 AST 15 ALT 26 Alkaline Phosphatase 80 Total Protein 6.4 Albumin 3.0 L PAWSS Have you Been Recently Intoxicated or Drunk Within the Last 30 days?: No Have you Ever Experienced Previous Episodes of Alcohol Withdrawal?: No Have you ever Experienced Withdrawal Seizures?: No Have you ever Experienced Delirium Tremens(DT)s?: No Have you ever undergone Alcohol Rehabilitation Treatment (i.e, inpt ot outpatient treatment programs)?: No Have you ever Experienced Blackouts?: No Have you ever Combined Alcohol with other Downers within the last 90 days?: No Have you ever Combined Alcohol with any other Substance of Abuse during the last 90 days?: No Positive Blood Alcohol level on Presentation? [PCS.BAL]: No Evidence of Increased Autonomic Activity (i.e. HR>120, tremor, sweating, agitation, nausea)?: No Result: 0 Time Spent with Patient Time Spent with Patient: 25-34 minutes Time was spent: preparing to see the patient(eg.review tests), obtaining and/or reviewing separately otained hiistory, ordering medications,tests, procedures, referring, communicating with other health child care group leader, indepentently in terpreting results, counseling the patient, care coordination and other
--- NOTE | 2024-02-07 12:54 | W.PM.DS.N ---
Date of service: 02/07/24 Time of Service: 12:55 DS: Diagnosis Discharge Diagnosis (1) Hypertension: Status: Chronic (2) Hyperlipidemia: Status: Chronic (3) Type 2 diabetes mellitus: Status: Chronic (4) Acute lower GI bleeding: Status: Acute (5) Diverticulosis: Status: Acute (6) Villoglandular colonic polyp: Status: Acute (7) Anemia due to GI blood loss: Status: Acute Discharge Plan Disposition Patient Disposition: Home Condition: Improving Discharge Details Reason For Visit: s/p removal cancerous polyp Admit Date/Time: 02/06/24 16:44 Admit Provider: Melania Orr Attending Provider: Melania Orr Primary Care Provider: [facility] Course Hospital Course: see addendum Home Meds and New Rx's Prescriptions: New metronidazole 500 mg tablet 500 mg PO TID 2 Days Qty: 6 0RF ciprofloxacin HCl [Cipro] 500 mg tablet 500 mg PO BID 2 Days Qty: 4 0RF ferrous sulfate [Herbie-In-Ara] 15 mg iron (75 mg)/mL drops 1 ml PO BID Qty: 50 6RF Continued cholecalciferol (vitamin D3) 25 mcg (1,000 unit) capsule 25 mcg PO DAILY Men 50 Plus Multivitamin 300-600-300 mcg tablet 1 tab PO DAILY Discontinued polyethylene glycol 3350 17 gram/dose powder 238 g PO ONCE Qty: 238 0RF Rx Instructions: take per colonoscopy instructions bisacodyl [Dulcolax (bisacodyl)] 5 mg tablet,delayed release (DR/EC) 5 mg PO ONCE Qty: 4 0RF Rx Instructions: take per colonoscopy instructions omeprazole 20 mg capsule,delayed release(DR/EC) 20 mg PO HS Discharge Instructions Additional Instructions: [facility] Colonoscopy Post-Op Instructions Findings: Multiple large polyps One large polyp concerning for cancer Follow up: Dr. Orr in 2-3 weeks. You will need to call for appt [phone] on Friday during business hours (8-4). 1. No lifting over 20 pounds or strenuous activity for the first 72 hours after your procedure. After 72 hours there are no restrictions on your activity but you may feel fatigued for a few days. 2. After you arrive home you may have a light meal and return to your normal diet as you can tolerate it without feeling sick to your stomach. 3. You may have a bloated, gaseous feeling in your belly (abdomen) after a colonoscopy. Passing gas and belching will help. Walking or lying down on your left side with your knees flexed may relieve the discomfort. 4. Finish antibiotics as prescribed to prevent infection. 5. No ASA/NSAID's for 10 days. 6. Fe-Ara (iron drops) for the next 12 weeks. Than we will recheck blood count and iron levels. Call the office at [phone] (Office) or [phone] (Hospital) right away if you notice any of the following: a.Vomiting of blood or ?coffee ground stools?. b.Rectal bleeding 1Tbsp, blood clots or continuous bleeding. c.Severe belly (abdominal) pain. d.A hard distended belly (abdomen) and an inability to pass gas. 4. Please don?t expect to have a normal BM (bowel movement) for 2-3 days after your procedure. 5. If there are questions regarding the findings of your procedure, please contact your doctor 6. If you are unable to contact your doctor with a problem, contact the hospital at [phone]. 7. Continue all your regular medications unless directed otherwise. I understand the above instructions and have no questions. Signature of Patient or Adult Escort Name of Responsible Adult Escort Signature of Nurse Date/Time Stand Alone Forms: Anesthesia Discharge Inst., Karin Gant ([facility]), Nursing Discharge Form Referrals: Melania Orr, [OSTEOPATHIC DOCTOR] - (Please call the office on Friday to set up your follow up appointment ) Activity:: see above Equipment/Supplies:: No Equipment Needed Diet:: see above Discharge Orders Discharge Orders: Discharge Order (Routine); Ordered 02/06/24 Ordered By: Melania Orr DS: Summary Time Spent with Patient providing and/or coordinating discharge services: Less than 30 minutes Status at Discharge Functional status at discharge: independent ambulation Overall status at discharge: patient is progressing back to baseline Mental Status: mental status grossly normal Speech and Movement: speech and movement normal Mood: congruent mood Affect: normal affect Quality:SDOH Health Related Social Needs: No Data to Display Exam Psych Mental Status: mental status grossly normal Speech and Movement: speech and movement normal Mood: congruent mood Affect: normal affect DS: Data Vitals/I&O Vitals and I&O: Vital Signs Temperature 35.8 C L 02/07/24 07:21 Temperature Source Temporal Artery Scan 02/07/24 07:21 Pulse 62 02/07/24 07:21 Pulse Rhythm Regular 02/06/24 17:33 Pulse 51 L 02/06/24 16:30 Respiratory Rate 15 02/07/24 07:21 Respiratory Effort Normal 02/06/24 17:33 Respiratory Depth Normal 02/06/24 17:33 Respiratory Pattern Normal 02/06/24 17:33 Blood Pressure 166/72 H 02/07/24 07:21 Blood Pressure Mean 100 02/06/24 16:30 Pulse Oximetry 98 02/07/24 09:37 Respiratory End-tidal CO2 30 02/06/24 16:30 Oxygen Delivery Method Room Air 02/07/24 09:37 Oxygen Flow Rate 0 02/07/24 09:37 Pain Level 0 02/07/24 07:21 Intake & Output 02/06/24 02/07/24 02/07/24 23:59 11:59 23:59 Intake Total 1100 / 1100 540 / 540 Output Total 250 / 250 320 / 320 Balance 850 / 850 220 / 220 Weight 75.977 kg Intake: IV 1100 / 1100 540 / 540 Output: Urine 250 / 250 320 / 320 Other: Urine Color Pale Yellow Yellow Urine Appearance Clear Clear Urine Odor None Normal Emesis Description None Voiding Methods Toilet Urinal Data Completed and Pending Labs on day of discharge: Labs from last 24 hours 02/07/24 06:07 WBC 12.48 H RBC 3.76 L Hgb 10.6 L Hct 32.4 L MCV 86 MCH 28.2 MCHC 32.7 RDW 13.3 Plt Count 287 MPV 10.9 Immature Gran % 0.2 Neutrophils % 81.2 Lymphocytes % 11.1 Monocytes % 6.9 Eosinophils % 0.3 Basophils % 0.3 Nucleated RBC % 0.0 Absolute Neutrophils 10.13 H Absolute Lymphocytes 1.39 Absolute Monocytes 0.86 H Absolute Eosinophils 0.04 Absolute Basophils 0.04 Sodium 140 Potassium 4.1 Chloride 104 Carbon Dioxide 28.1 Anion Gap 7.9 BUN 10 Creatinine 0.8 Est GFR (CKD-EPI 2020) 90.02 Glucose 117 H Calcium 8.6 Total Bilirubin 0.58 AST 15 ALT 26 Alkaline Phosphatase 80 Total Protein 6.4 Albumin 3.0 L PFSH All Active Problems (Updated 02/07/24 @ 12:08 by Melania Orr DO) Anemia due to GI blood loss (Acute) Villoglandular colonic polyp (Acute) Diverticulosis (Acute) Acute lower GI bleeding (Acute) Hypertension (Chronic) Type 2 diabetes mellitus (Chronic) Elevated prostate specific antigen (PSA) (Chronic) Biopsy 2011 and 2022 negative for malignancy BPH loc w urin obs/LUTS (Chronic) Hyperlipidemia (Chronic) Osteoarthritis of right knee (Chronic) Steroid injection: 03/05/2021 Epidermoid cyst of skin of back (Chronic) Surgical History S/P tonsillectomy Family History Mother , age 85 No problems noted. Father , age 45 No problems noted. Sister , age 50 Cancer Sister , age 55 Heart disease Sister No problems noted. Brother , age 52 Heart disease Brother No problems noted. Son No problems noted. Son No problems noted. Maternal Grandfather , age 77 No problems noted. Paternal Grandfather , age 65 No problems noted. Maternal Grandmother , age 57 Heart disease Paternal Grandmother , age 80 No problems noted. Social History Smoking/Tobacco Use Status: Former Tobacco Use tobacco type: cigarettes Quit Date: 06/02/97 Tobacco: How many years used: 20 Second Hand Exposure: Yes Smoking risk assessment performed?: Yes Alcohol Intake: current Alcohol Intake frequency: holidays/special occasions only Alcohol type: beer and hard liquor Drug use: Never Substance use type: does not use Caregiver/Support person: No Household members: significant other Housing: house Communication Needs: None Do you need help understanding health information?: Never Pets and animals: Yes Pets and animals: cat(s) Sexually active: Yes Do you think of yourself as: straight/heterosexual Current gender identity: male What is your relationship status?: How often do you talk on the phone with friends or family?: once per week How often do you get together with friends or relatives?: once per week How often do you attend rastafarian or mosque services?: decline to answer Do you belong to any clubs or organized social groups?: no Panel score (0-1 are the most socially isolated patients): 1 What type of physical activity do you participate in: walking Duration: 45-60 minutes/day Frequency: daily Emma/Jewish: None Special emma needs: No Seatbelt use: always Helmet use: No Drive intox or ride w/intox telephone directory distributor driver: No Do you feel safe at home: Yes Do you feel safe in your relationship?: Yes Time Spent with Patient Time Spent with Patient: <45 minutes Time was spent: preparing to see the patient(eg.review tests), obtaining and/or reviewing separately otained hiistory, ordering medications,tests, procedures, referring, communicating with other health child care team lead, indepentently interpreting results, counseling the patient, care coordination and other
--- NOTE | 2024-02-07 16:08 | PDOC.CMPRO ---
Date of service: 02/07/24 Time of Service: 13:00 Care Management Progress Note Progress Note Text Progress Note Text: Emery was admitted last evening for removal of a cancerous polyp. He was kept overnight for monitoring because of the large size of the polyp and the number of polyps that were removed, and to also receive IV antibiotics. Emery was up and dressed when CM met with him this afternoon. He was eager for discharge. He and his denied any needs in the home. They were both pleasant, but stated they were very eager for discharge. Discharge Potential Discharge Needs: PCP F/U Appt and Surgical F/U Appt Anticipated Barriers to Discharge: None Identified Patient/Family Education Needs: Review discharge instructions, discuss Ask Me Three Transportation: Private vehicle Plan: Emery is discharged home with no new services. He will f/u with his PCP and with surgery in 1-2 weeks. Emery will continue per his plan of care. SDOH(Care Management) Screening Will the Patient Participate in the Screening?: Yes Do you worry about having a steady place to live?: yes Problems where you live: no known problems In the past 12 months, have you had to go without electric, gas, oil or water in your home?: no Have you or anyone in your house had to go without enough food to eat?: no Has lack of transportation kept you from medical appointments or from doing things needed for daily living?: no Has anyone in your support network made you feel unsafe for any reason?: no Health Related Social Needs Health related social needs: housing instability, housed, with risk of homelessness(Z59.811)
== END 2024-02-07 13:20 | disposition home or self-care (01) ==
LOC: SUR 16:58 → MS 17:00
PROVIDERS: Admitting Provider Surgery; PCP Nurse Practitioner Family; Visit Provider Surgery
PROC: (CPT 45385; principal; 2024-02-06 13:45)
DX: D62 Acute posthemorrhagic anemia; E11.9 Type 2 diabetes mellitus without complications; E78.5 Hyperlipidemia, unspecified; K57.31 Diverticulosis of large intestine without perforation or abscess with bleeding; K63.5 Polyp of colon; I10 Essential (primary) hypertension; N40.1 Benign prostatic hyperplasia with lower urinary tract symptoms; Z87.891 Personal history of nicotine dependence; M17.11 Unilateral primary osteoarthritis, right knee; K29.70 Gastritis, unspecified, without bleeding; K22.89 Other specified disease of esophagus; B96.81 Helicobacter pylori [H. pylori] as the cause of diseases classified elsewhere
CPT/HCPCS: 45385; 45381; 45380; 36415; 80053; 88305; 96365; 96366; 96367; 99238; 85025; G0378; J0744; J1836; J2001; J2405; J2704

== ENCOUNTER → 2024-02-18 09:59 | Outpatient (BNVA) | payer BC, MEDICARE, SELFPAY | PROVIDERS: PCP Nurse Practitioner Family; Referring Provider Nurse Practitioner Family; Visit Provider Surgery | DX: K92.2 Gastrointestinal hemorrhage, unspecified (principal); K22.70 Barrett's esophagus without dysplasia | CPT/HCPCS: 99214 ==

== ENCOUNTER 2024-03-11 03:05 | Outpatient (CLI) | payer MEDICARE, BC, SELFPAY ==
[2024-03-11 12:48] LABS: Abs Immature Grans 0.03 10^3/uL (0.0-0.06); Absolute Basophil Count 0.09 10^3/uL (0.0-0.2); Absolute Eosinophil Count 0.09 10^3/uL (0.0-0.7); Absolute Monocyte Count 0.71 10^3/uL (0.1-0.8); Basophils % 1.2 %; Eosinophils % 1.2 %; HCT 42.5 % (40.0-50.0); HGB 13.6 g/dL (13.5-17.5); Immature Grans % 0.4 %; Lymphocytes % 24.6 %; MCH 26.9 pg (27.0-33.0); MCV 84 fL (80-95); MPV 10.9 fL (8.0-11.0); Monocytes % 9.7 %; Neutrophils % 62.9 %; Platelet Count 269 10^3/uL (130-400); RBC 5.06 10^6/uL (4.36-5.78); RDW 14.1 % (11.8-14.1); RDW-SD 42.9 fL; WBC 7.32 10^3/uL (4.4-10.8)
[2024-03-11 13:34] LABS: Ferritin 31 ng/mL (26-388)
== END 2024-03-11 03:06 | disposition home or self-care (01) ==
LOC: LBO 03:06
PROVIDERS: PCP Nurse Practitioner Family; Visit Provider Surgery
DX: I10 Essential (primary) hypertension (principal); E78.5 Hyperlipidemia, unspecified; E11.9 Type 2 diabetes mellitus without complications; K29.70 Gastritis, unspecified, without bleeding; B96.81 Helicobacter pylori [H. pylori] as the cause of diseases classified elsewhere; K22.70 Barrett's esophagus without dysplasia; K57.30 Diverticulosis of large intestine without perforation or abscess without bleeding; K63.5 Polyp of colon; R97.20 Elevated prostate specific antigen [PSA]; N40.1 Benign prostatic hyperplasia with lower urinary tract symptoms; D50.0 Iron deficiency anemia secondary to blood loss (chronic)
CPT/HCPCS: 36415; 99214; 82728; 85025

== ENCOUNTER 2024-05-17 16:31 | Outpatient (REF) | payer MEDICARE, BC, SELFPAY ==
[2024-05-18 13:33] LABS: Helicobacter pylori Ag, Feces Negative (Negative)
== END 2024-05-17 16:32 | disposition home or self-care (01) ==
LOC: LBN 16:31
PROVIDERS: PCP Nurse Practitioner Family; Visit Provider Surgery
DX: I10 Essential (primary) hypertension (principal); E78.5 Hyperlipidemia, unspecified; E11.9 Type 2 diabetes mellitus without complications; K29.70 Gastritis, unspecified, without bleeding; B96.81 Helicobacter pylori [H. pylori] as the cause of diseases classified elsewhere; R97.20 Elevated prostate specific antigen [PSA]; D50.0 Iron deficiency anemia secondary to blood loss (chronic)
CPT/HCPCS: 87338

== ENCOUNTER 2024-08-13 21:17 | Outpatient (REF) | payer MEDICARE, BC, SELFPAY ==
[2024-08-13 22:38] LABS: COMMENT (LAB VIEW ONLY) 92.33 mg/dL
[2024-08-13 22:44] LABS: Microalb ug/mg Crea 276.6 ug/mg Cr
== END 2024-08-13 21:18 | disposition home or self-care (01) ==
LOC: LBN 21:17
PROVIDERS: PCP Nurse Practitioner Family; Visit Provider Nurse Practitioner Family
DX: E11.9 Type 2 diabetes mellitus without complications (principal); M72.0 Palmar fascial fibromatosis [Dupuytren]; M25.561 Pain in right knee; Z12.11 Encounter for screening for malignant neoplasm of colon; N40.1 Benign prostatic hyperplasia with lower urinary tract symptoms; R97.20 Elevated prostate specific antigen [PSA]; K22.70 Barrett's esophagus without dysplasia; K29.70 Gastritis, unspecified, without bleeding; B96.81 Helicobacter pylori [H. pylori] as the cause of diseases classified elsewhere; D50.0 Iron deficiency anemia secondary to blood loss (chronic); Z71.89 Other specified counseling; M17.11 Unilateral primary osteoarthritis, right knee
CPT/HCPCS: 82043; 82570

== ENCOUNTER 2024-09-06 14:15 | Outpatient (REF) | payer MEDICARE, BC, SELFPAY ==
[2024-09-06 13:55] LABS: Bilirubin Negative (Negative); Blood Trace-intact (Negative); Clarity Clear (Clear); Glucose Negative (Negative); Ketones Negative (Negative); Leukocyte Esterase Negative (Negative); Nitrite Negative (Negative); Specific Gravity 1.015 (1.005-1.025); Urobilinogen 0.2 mg/dL (Up to 0.2)
[2024-09-06 14:01] LABS: Bacteria Negative HPF (Negative); C & S Indicated? No; Casts 0-2 Hyaline LPF (Negative); Crystals Negative HPF (Negative); Epithelial Cells Rare HPF (Negative); Mucus Negative (Negative); RBC 0-2 HPF (0-2); WBC Negative HPF (0-5)
[2024-09-06 16:40] LABS: COMMENT (LAB VIEW ONLY) 52.81 mg/dL
[2024-09-06 16:41] LABS: Microalb ug/mg Crea 276.3 ug/mg Cr
== END 2024-09-06 14:16 | disposition home or self-care (01) ==
LOC: NCHCN 14:15
PROVIDERS: PCP Nurse Practitioner Family; Visit Provider Nurse Practitioner Family
DX: E11.9 Type 2 diabetes mellitus without complications (principal)
CPT/HCPCS: 81003; 81015; 82043; 82570

== ENCOUNTER → 2024-10-11 09:25 | Outpatient (BNVA) | payer MEDICARE, BC, SELFPAY | PROVIDERS: PCP Nurse Practitioner Family; Referring Provider Nurse Practitioner Family; Visit Provider Student in an Organized Health Care Education/Training Program | DX: M72.0 Palmar fascial fibromatosis [Dupuytren] (principal) | CPT/HCPCS: 99213 ==

== ENCOUNTER → 2024-10-13 10:16 | Outpatient (BNVA) | payer MEDICARE, BC, SELFPAY | PROVIDERS: PCP Nurse Practitioner Family; Referring Provider Nurse Practitioner Family; Visit Provider Physical Therapy Assistant | DX: Z12.11 Encounter for screening for malignant neoplasm of colon (principal); Z86.0101 Personal history of adenomatous and serrated colon polyps | CPT/HCPCS: S0285 ==

== ENCOUNTER 2025-05-20 00:31 | Outpatient (CLI) | payer MEDICARE, BC, SELFPAY ==
[2025-05-20 08:36] LABS: Anion Gap 10.9 mmol/L (3-11); BUN 15 mg/dL (9-23); CO2 26.1 mmol/L (20.0-31.0); Calcium 9.2 mg/dL (8.3-10.6); Chloride 103 mmol/L (98-107); Glucose 124 mg/dL (74-106); Potassium 3.8 mmol/L (3.5-5.1); Sodium 140 mmol/L (136-145)
== END 2025-05-20 00:32 | disposition home or self-care (01) ==
PROVIDERS: PCP Nurse Practitioner Family; Visit Provider Nurse Practitioner Family
DX: R80.9 Proteinuria, unspecified (principal); N18.1 Chronic kidney disease, stage 1; R73.03 Prediabetes; E55.9 Vitamin D deficiency, unspecified
CPT/HCPCS: 36415; 80048; 84153